=== PATIENT | female | born 1990 | race African-American/Black ===

== ENCOUNTER 2019-01-06 11:21 | Emergency (ER) | payer SELFPAY ==
[~2019-01-06] VITALS: Ht 172.7 cm; Wt 94.0 kg
[2019-01-06 11:36] VITALS: BP 141/73
== END 2019-01-06 13:45 | disposition left against medical advice (07) ==
LOC: ER 12:43
DX: R05 Cough (principal); Z53.21 Procedure and treatment not carried out due to patient leaving prior to being seen by health care provider